=== PATIENT | female | born 1960 ===

== ENCOUNTER 2021-11-15 07:52 | Outpatient (REF) | payer OTHER, SELFPAY ==
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
== END 2021-11-15 07:53 | disposition home or self-care (01) ==
LOC: HO.SH 07:52
PROVIDERS: Visit Provider Family Medicine
DX: Z01.118 Encounter for examination of ears and hearing with other abnormal findings (principal); H90.6 Mixed conductive and sensorineural hearing loss, bilateral; H69.93 Unspecified Eustachian tube disorder, bilateral
CPT/HCPCS: 92557; 92567; 92588